=== PATIENT | male | born 1965 | race Caucasian/White ===

== ENCOUNTER 2022-02-18 05:50 | Day surgery (SDC) | payer MEDICAID ==
[~2022-02-18] VITALS: Ht 170.2 cm; Wt 68.0 kg
[2022-02-18] MEDS ORDERED: SIMETHICONE 40 MG/0.6 ML ML ONE (06:19)
[2022-02-18] MEDS ORDERED: MEPERIDINE 100 MG INJ. 100 MG/ML VIAL ONE (06:19)
[2022-02-18] MEDS: MIDAZOLAM HCL 5 MG/5 ML VIAL ONE ×4 (08:56→09:11)
[2022-02-18] MEDS: fentaNYL CITRATE/PF 100 MCG/2 ML AMP ONE ×3 (08:56→09:02)
[2022-02-19 08:40] VITALS: BP_SYST 122
== END 2022-02-18 09:50 | disposition home or self-care (01) ==
LOC: SMU 05:50 → SDS 05:50
PROVIDERS: ATTEND Internal Medicine
DX: Z12.11 Encounter for screening for malignant neoplasm of colon (principal); K62.1 Rectal polyp; K57.30 Diverticulosis of large intestine without perforation or abscess without bleeding; K64.8 Other hemorrhoids; Z20.822 Contact with and (suspected) exposure to COVID-19; Z79.899 Other long term (current) drug therapy
CPT/HCPCS: 36415 ×2; 45380; 82962; 87426; 88305; 99152; G0378; J2250; J3010; U0003; J2175